=== PATIENT | female | born 1995 | race Caucasian/White ===

== ENCOUNTER 2019-06-09 20:08 | Emergency (ER) | payer SELFPAY ==
[2019-06-09 20:34] VITALS: BP 114/79
[2019-06-09] MEDS ORDERED: Ondansetron ODT TAB* 4 MG PO ONE ×2 (21:22→21:24)
[2019-06-09] MEDS ORDERED: Pantoprazole TAB * 40 MG TAB PO ONE (21:22)
--- NOTE | 2019-06-09 21:26 | UC ---
Abdominal Pain Female HPI - HPI Summary HPI Summary: 24-year-old woman comes in with a chief complaint of epigastric pain that radiates up into her chest and nausea and vomiting. Patient ate a large meal last night just prior to going to bed and laid down woke up some morning with the symptoms. She does have a history of GERD and this reminds her of the GERD exacerbation. She has not been on GERD medications for some time. No fevers or chills no blood in the vomit no blood in her stools. Reports a normal bowel movement today. Pain is worse with palpation. - History of Current Complaint Chief Complaint: UCGI Stated Complaint: ABDOMINAL PAIN, AND VOMITING Time Seen by Provider: 06/09/19 21:11 Hx Last Menstrual Period: [id number] Pain Intensity: 7 Allergies/Adverse Reactions: Allergies Allergy/AdvReac Type Severity Reaction Status Date / Time Penicillins Allergy Hives/Diff. Verified 06/09/19 20:34 Breathing/I tching PMH/Surg Hx/FS Hx/Imm Hx Previously Healthy: Yes GI/ History: Gastroesophageal Reflux - Surgical History Surgical History: Yes Surgery Procedure, Year, and Place: heart as a baby - Family History Known Family History: Positive: Non-Contributory - Social History Alcohol Use: None Substance Use Type: None Smoking Status (MU): Never Smoked Tobacco Review of Systems All Other Systems Reviewed And Are Negative: Yes Constitutional: Positive: Negative Skin: Positive: Negative Eyes: Positive: Negative ENT: Positive: Negative Respiratory: Positive: Negative Cardiovascular: Positive: Other - SEE HPI Gastrointestinal: Positive: Abdominal Pain, Vomiting, Nausea Genitourinary: Positive: Negative Motor: Positive: Negative Neurovascular: Positive: Negative Musculoskeletal: Positive: Negative Neurological: Positive: Negative Psychological: Positive: Negative Is Patient Immunocompromised?: No Physical Exam Triage Information Reviewed: Yes Appearance: Well-Appearing, No Pain Distress, Well-Nourished Vital Signs: Initial Vital Signs Temp 98.2 F 06/09/19 20:28 Pulse 85 06/09/19 20:28 Resp 16 06/09/19 20:28 BP 114/79 06/09/19 20:28 Pulse Ox 100 06/09/19 20:28 Vital Signs Reviewed: Yes Eye Exam: Normal Eyes: Positive: Conjunctiva Clear ENT: Positive: Pharynx normal Neck: Positive: Supple Respiratory: Positive: Lungs clear, Normal breath sounds, No respiratory distress Cardiovascular: Positive: RRR Abdomen Description: Positive: Other: - Tender to palpation in the epigastrium. No lower abdominal tenderness. No rebound. Bowel Sounds: Positive: Present Musculoskeletal: Positive: Strength Intact, ROM Intact Neurological: Positive: Alert Psychological: Positive: Normal Response To Family, Age Appropriate Behavior Skin Exam: Normal Abd Pain Female Course/Dx - Course Course Of Treatment: Patient's tenderness is in the epigastrium she has burning sensation going up the middle of her chest. This reminds her of her GERD symptoms in the past. Will be treating for GERD. Patient's to follow-up with her primary care doctor. Did let her know that if he got worse she needed to go the emergency department. - Differential Dx/Diagnosis Provider Diagnosis: Epigastric abdominal pain, Nausea & vomiting Discharge - Sign-Out/Discharge Documenting (check all that apply): Patient Departure All imaging exams completed and their final reports reviewed: No Studies - Discharge Plan Condition: Stable Disposition: HOME Prescriptions: Omeprazole 20 mg PO BID #30 capsule. Ondansetron ODT TAB* [Zofran 4 MG Odt TAB*] 4 mg PO Q6H PRN #10 tab.odt PRN Reason: Nausea Patient Education Materials: Gastroesophageal Reflux Disease (ED), Acute Nausea and Vomiting (ED), Epigastric Pain (ED) Forms: *Work Release Referrals: [facility] [place] [facility] [Outside] [facility] [Outside] Additional Instructions: FOLLOW UP WITH YOUR DOCTOR IF NOT COMPLETELY IMPROVED. GO TO THE EMERGENCY DEPARTMENT IF YOUR CONDITION WORSENS; PAIN, FEVER, BLOOD IN YOUR VOMIT OR STOOL, YOU FEEL ILL OR ANY QUESTIONS OR CONCERNS. - Billing Disposition and Condition Condition: STABLE Disposition: Home
== END 2019-06-09 22:00 | disposition home or self-care (01) ==
LOC: UCEAST 20:08
DX: R10.13 Epigastric pain (principal); R11.2 Nausea with vomiting, unspecified; K21.9 Gastro-esophageal reflux disease without esophagitis; Z88.0 Allergy status to penicillin
CPT/HCPCS: 99202; A9270-GY; G0463

== ENCOUNTER 2019-08-22 12:27 | Emergency (ER) | payer SELFPAY ==
[2019-08-22 13:08] VITALS: BP 94/58
== END 2019-08-22 13:15 | disposition left against medical advice (07) ==
LOC: UCEAST 12:27
DX: Z53.21 Procedure and treatment not carried out due to patient leaving prior to being seen by health care provider (principal)

== ENCOUNTER 2019-08-23 00:02 | Emergency (ER) | payer SELFPAY ==
[2019-08-23] MEDS ORDERED: Ibuprofen TAB* 400 MG PO ONE (04:39)
--- NOTE | 2019-08-23 04:45 | ED ---
Skin Complaint - HPI Summary HPI Summary: This pt is a 24 Y/O F presenting to [facility] accompanied by her sister with a CC of a vaginal lump that has been present on and off for years and is rated an 8/ 10 in severity. She states that the episodes usually last for 1-2 days and then the lump dissipates. She states that the lump was present since 08/19/19 and has not decreased since it has appeared. She denies any fevers, N/V, SOB, CP, headaches, dysuria, vaginal discharge, and abdominal pain. She states no aggravating or alleviating factors. She has no pertinent PMHx. - History of Current Complaint Chief Complaint: EDGeneral Time Seen by Provider: 08/23/19 02:40 Stated Complaint: PAINFUL KNOT ON PELVIC AREA PER PT Hx Obtained From: Patient Hx Last Menstrual Period: 07/21/19 Onset/Duration: Started Days Ago - 4, Still Present Skin Exposure Onset/Duration: Days Ago - 4 Timing: Constant Onset Severity: Severe Current Severity: Severe Pain Intensity: 8 Pain Scale Used: 0-10 Numeric Skin Location: Other: - vagina Character: Raised Aggravating Symptom(s): Nothing Alleviating Symptom(s): Nothing Associated Signs & Symptoms: Negative - fevers, N/V, SOB, CP, headaches, dysuria , vaginal discharge, and abdominal pain. - Allergy/Home Medications Allergies/Adverse Reactions: Allergies Allergy/AdvReac Type Severity Reaction Status Date / Time Penicillins Allergy Hives/Diff. Verified 08/23/19 00:10 Breathing/I tching PMH/Surg Hx/FS Hx/Imm Hx Previously Healthy: Yes Endocrine/Hematology History: Denies: Hx Diabetes Cardiovascular History: Denies: Hx Cardiac Arrest, Hx Hypertension Respiratory History: Denies: Hx Asthma - Surgical History Surgical History: Yes Surgery Procedure, Year, and Place: heart as a baby - Immunization History Immunizations Up to Date: Yes Infectious Disease History: No Infectious Disease History: Denies: Traveled Outside the [place] in Last 30 Days - Family History Known Family History: Positive: Diabetes - Social History Occupation: Unemployed Lives: With Family Alcohol Use: Rare Hx Substance Use: No Substance Use Type: Reports: None Hx Tobacco Use: Yes Smoking Status (MU): Current Some Day Smoker Review of Systems Negative: Fever Negative: Chest Pain Negative: Shortness Of Breath Negative: Abdominal Pain, Vomiting, Nausea Genitourinary: Negative - vaginal discharge Negative: dysuria Skin: Other - POSITIVE: vainal lumps Negative: Headache All Other Systems Reviewed And Are Negative: Yes Physical Exam - Summary Physical Exam Summary: General: Well-developed, Well-nourished female. No acute distress. Sleeping upon entry poor dentition HEENT: Normocephalic, Atraumatic. Eyes: Conjuctiva normal, PERRL. Ears: TMs within normal limits. Nares: (-) discharge, (-) erythema. Oropharynx: Clear, mucous membranes moist, (-) exudates. Neck: Soft, FROM, (-) lymphadenopathy, (-) thyromegaly, (-) JVD. Cardiovascular: Normal sinus rhythm, (-) murmur. Lungs: Clear to auscultation bilaterally (-) wheezes, (-) rales, (-) rhonchi. Abdomen: Soft, non-tender, non-distended, (-) organomegaly, normal bowel sounds. Back: (-) CVA tenderness Extremities: No edema. Skin: Warm, dry, (-) rash. 2 lymph nodes on her L groin, about 6-8 mms. Distal node is tender to palpation Neuro: Alert and oriented x3, no focal deficits. Psychiatric: Mood normal, affect normal. Triage Information Reviewed: Yes Vital Signs On Initial Exam: Initial Vitals Temp Pulse Resp BP Pulse Ox 98.6 F 98 18 113/71 99 08/23/19 00:10 08/23/19 00:10 08/23/19 00:10 08/23/19 00:10 08/23/19 00:10 Vital Signs Reviewed: Yes Procedures - Sedation Patient Received Moderate/Deep Sedation with Procedure: No Diagnostics - Vital Signs Vital Signs Temp Pulse Resp BP Pulse Ox 08/23/19 04:00 62 97 08/23/19 03:49 84 99/62 97 08/23/19 03:18 71 99 08/23/19 03:00 81 99 08/23/19 02:48 78 111/63 100 08/23/19 02:18 91 117/73 98 08/23/19 00:10 98.6 F 98 18 113/71 99 - Laboratory Lab Statement: Any lab studies that have been ordered have been reviewed, and results considered in the medical decision making process. Course/Dx - Course Course Of Treatment: 24-year-old female with tender lymph node in the left groin area. Also a nontender lymph node noted. Advised warmth to the area. Ibuprofen for tenderness. Follow-up with PCP. Follow-up sooner for any worsening symptoms. - Diagnoses Provider Diagnoses: Lymphadenopathy Discharge ED - Sign-Out/Discharge Documenting (check all that apply): Patient Departure - discharge - Discharge Plan Condition: Stable Disposition: HOME Patient Education Materials: Lymphadenopathy (ED) Referrals: [facility] [Outside] - 2 Days Additional Instructions: PLEASE FOLLOW UP WITH THE [facility] IN THE NEXT 1-3 DAYS. RETURN TO THE EMERGENCY DEPARTMENT WITH ANY NEW OR WORSENING SYMPTOMS. - Billing Disposition and Condition Condition: STABLE Disposition: Home - Attestation Statements Document Initiated by Pinky: Yes Documenting Scribe: Juan Topete Provider For Whom Gabbieibe is Documenting (Include Credential): Heather Nix MD Scribe Attestation: Juan Miranda, scribed for Heather Nix MD on 08/23/19 at 0540. Scribe Documentation Reviewed: Yes Provider Attestation: The documentation as recorded by the Juan christine accurately reflects the service I personally performed and the decisions made by , Heather Nix MD Status of Scribe Document: Viewed
[2019-08-23 04:54] VITALS: BP 106/68
== END 2019-08-23 04:51 | disposition home or self-care (01) ==
LOC: ED 00:02
DX: R59.0 Localized enlarged lymph nodes (principal); Z88.0 Allergy status to penicillin; Z72.0 Tobacco use
CPT/HCPCS: 99282; A9270-GY